=== PATIENT | female | born 1980 | race African-American/Black ===

== ENCOUNTER 2017-03-09 17:55 | Emergency (ER) | payer MEDICAID ==
--- NOTE | 2017-03-09 18:31 | EDM.PDOC ---
ED HPI GENERAL MEDICAL PROBLEM - General Chief Complaint: General Stated Complaint: TOOTHACHE Time Seen by Provider: 03/09/17 18:20 Source of Information: Reports: Patient History Limitations: Reports: No Limitations - History of Present Illness INITIAL COMMENTS - FREE TEXT/NARRATIVE: History of present illness: [36-year-old female presenting with complaints of dental pain. Patient indicates was the pain is in her right upper jaw.] Review of systems: As per history of present illness and below otherwise all systems reviewed and negative. Past medical history: As per history of present illness and as reviewed below otherwise noncontributory. Surgical history: As per history of present illness and as reviewed below otherwise noncontributory. Social history: No reported history of drug or alcohol abuse. Family history: As per history of present illness and as reviewed below otherwise noncontributory. Physical exam: HEENT: Atraumatic, normocephalic, pupils reactive, negative for conjunctival pallor or scleral icterus, mucous membranes moist, throat clear, neck supple, nontender, trachea midline. Lungs: Clear to auscultation, breath sounds equal bilaterally, chest nontender. Heart: S1S2, regular, negative for clicks, rubs, or JVD. Abdomen: Soft, nondistended, nontender. Negative for masses or hepatosplenomegaly. Negative for costovertebral tenderness. Pelvis: Stable nontender. Genitourinary: Deferred. Rectal: Deferred. Extremities: Atraumatic, negative for cords or calf pain. Neurovascular unremarkable. Neuro: Awake, alert, oriented. Cranial nerves II through XII unremarkable. Cerebellum unremarkable. Motor and sensory unremarkable throughout. Exam nonfocal. Patient's global assessment is benign save that of the subjective complaint area visualized the inside patients mouth without any significant edema or swelling noted but noted numerous fillings in the 1 through 4 region. Tooth #1 appeared to be fractured immediately proximal to the silver amalgam material. Patient is new to the area and doesn't have the dentist as such we will add increased risk for an abscess while trying to get into see dentist Diagnostics: [] Therapeutics: [] Impression: [Dental caries, dental abscess] Plan: [Antibiotics brief run of pain medicine dental referral] Definitive disposition and diagnosis as appropriate pending reevaluation and review of above. Right Upper Dental Pain Pain Score (Numeric/FACES): 10 - Related Data Allergies Allergy/AdvReac Type Severity Reaction Status Date / Time No Known Allergies Allergy Verified 03/09/17 18:05 Home Meds: Home Meds . [No Known Home Meds] 03/09/17 [History] Past Medical History - Past Health History Medical/Surgical History: Denies Medical/Surgical History Social & Family History - Family History Family Medical History: Noncontributory - Tobacco Use Smoking Status *Q: Never Smoker Second Hand Smoke Exposure: No - Caffeine Use Caffeine Use: Reports: Coffee, Energy Drinks, Soda, Tea Caffeine Use Comment: 1 drink/day - Recreational Drug Use Recreational Drug Use: No ED ROS GENERAL - Review of Systems Review Of Systems: See Below (See history of present illness) ED EXAM, GENERAL - Physical Exam Exam: See Below (See history of present illness) Course - Vital Signs Last Recorded V/S: Last Vital Signs Temp 36.1 C 03/09/17 18:06 Pulse 74 03/09/17 18:06 Resp 16 03/09/17 18:06 BP 130/74 03/09/17 18:06 Pulse Ox 99 03/09/17 18:06 Departure - Departure Time of Disposition: 18:32 Disposition: Home, Self-Care 01 Condition: good Clinical Impression: Dental abscess, Fracture of tooth - Discharge Information Forms: ED Department Discharge Additional Instructions: The following information is given to patients seen in the emergency department who are being discharged to home. This information is to outline your options for follow-up care. We provide all patients seen in our emergency department with a follow-up referral. The need for follow-up, as well as the timing and circumstances, are variable depending upon the specifics of your emergency department visit. If you don't have a primary care physician on staff, we will provide you with a referral. We always advise you to contact your personal physician following an emergency department visit to inform them of the circumstance of the visit and for follow-up with them and/or the need for any referrals to a consulting specialist. The emergency department will also refer you to a specialist when appropriate. This referral assures that you have the opportunity for follow-up care with a specialist. All of these measure are taken in an effort to provide you with optimal care, which includes your follow-up. Under all circumstances we always encourage you to contact your private physician who remains a resource for coordinating your care. When calling for follow-up care, please make the office aware that this follow-up is from your recent emergency room visit. If for any reason you are refused follow-up, please contact the [facility] Emergency Department at and asked to speak to the emergency department charge nurse. take Medication as directed Followup with dentist DARCIE Return to ER as needed as discussed
[2017-03-09 19:35] VITALS: BP 121/79
== END 2017-03-09 19:20 | disposition home or self-care (01) ==
LOC: MW.ED 17:55
DX: S02.5XXA Fracture of tooth (traumatic), initial encounter for closed fracture (principal); K04.7 Periapical abscess without sinus; K02.9 Dental caries, unspecified
CPT/HCPCS: 99282; 99283

== ENCOUNTER 2018-03-25 09:37 | Emergency (ER) | payer SELFPAY ==
[2018-03-25] MEDS ORDERED: Ketorolac 30 MG/ML SDV IVPUSH ONE (09:55)
[2018-03-25] MEDS ORDERED: Ondansetron 4 MG/2 ML SDV IVPUSH ONE (09:55)
[2018-03-25] MEDS ORDERED: Sodium Chloride 0.9% 1,000 ML IV ONE (09:55)
--- NOTE | 2018-03-25 09:57 | EDM.PDOC ---
ED HPI GENERAL MEDICAL PROBLEM - General Chief Complaint: Neuro Symptoms/Deficits Stated Complaint: HEADACHE AND DIZZINESS Time Seen by Provider: 03/25/18 09:57 Source of Information: Reports: Patient - History of Present Illness INITIAL COMMENTS - FREE TEXT/NARRATIVE: HISTORY AND PHYSICAL: History of present illness: Patient presents with 5 out of 10 unilateral headache with dizziness and mild nausea She denies head injury or trauma no fever vomiting chills sweats no chest pain shortness breath or palpitation no bowel or urine symptoms ] Review of systems: As per history of present illness and below otherwise all systems reviewed and negative. Past medical history: As per history of present illness and as reviewed below otherwise noncontributory. Surgical history: As per history of present illness and as reviewed below otherwise noncontributory. Social history: No reported history of drug or alcohol abuse. Family history: As per history of present illness and as reviewed below otherwise noncontributory. Physical exam: HEENT: Atraumatic, normocephalic, pupils reactive, negative for conjunctival pallor or scleral icterus, mucous membranes moist, throat clear, neck supple, nontender, trachea midline. Tympanic membrane on the right red landmarks obscured slight bulge left is dull and ejected with Vijaya fluid no mastoid tenderness no pain with movement of the auricle mild sinus tenderness right greater than left Lungs: Clear to auscultation, breath sounds equal bilaterally, chest nontender. Heart: S1S2, regular, negative for clicks, rubs, or JVD. Abdomen: Soft, nondistended, nontender. Negative for masses or hepatosplenomegaly. Negative for costovertebral tenderness. Pelvis: Stable nontender. Genitourinary: Deferred. Rectal: Deferred. Extremities: Atraumatic, negative for cords or calf pain. Neurovascular unremarkable. Neuro: Awake, alert, oriented. Cranial nerves II through XII unremarkable. Cerebellum unremarkable. Motor and sensory unremarkable throughout. Exam nonfocal. Diagnostics: [CBC CMP UA EKG chest [address] ] Therapeutics: [1 L bolus Toradol 30 mg IV Zofran 8 mg IV ] Impression: [ sinusitis Otitis media ] Headache improved DizzinessSecondary to above Definitive disposition and diagnosis as appropriate pending reevaluation and review of above. Headache Pain Score (Numeric/FACES): 6 - Related Data Allergies Allergy/AdvReac Type Severity Reaction Status Date / Time No Known Allergies Allergy Verified 03/25/18 09:47 Home Meds: Home Meds . 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 Surgical History: Reports: Section Social & Family History - Family History Family Medical History: Noncontributory - Tobacco Use Smoking Status *Q: Never Smoker - Caffeine Use Caffeine Use: Reports: None Caffeine Use Comment: 1 drink/day - Recreational Drug Use Recreational Drug Use: No ED ROS GENERAL - Review of Systems Review Of Systems: See Below ED EXAM, GENERAL - Physical Exam Exam: See Below Course - Vital Signs Last Recorded V/S: Last Vital Signs Temp 96.8 F 03/25/18 09:45 Pulse 63 03/25/18 10:55 Resp 20 03/25/18 10:55 BP 125/52 L 03/25/18 10:55 Pulse Ox 98 03/25/18 10:55 - Orders/Labs/Meds Orders: Active Orders 24 hr Category Date Time Status EKG Documentation Completion [RC] STAT Care 03/25/18 09:55 Active Chest 1V Frontal [CR] Stat Exams 03/25/18 09:57 Taken Head wo Cont [CT] Stat Exams 03/25/18 09:55 Taken HCG QUALITATIVE,URINE [URCHEM] Stat Lab 03/25/18 10:45 Ordered UA W/MICROSCOPIC [URIN] Stat Lab 03/25/18 10:45 Ordered Labs: Laboratory Tests 03/25/18 03/25/18 03/25/18 Range/Units 10:11 10:11 10:45 WBC 6.66 (4.0-11.0) K/uL RBC 4.70 (4.30-5.90) M/uL Hgb 12.8 (12.0-16.0) g/dL Hct 38.8 (36.0-46.0) % MCV 82.6 (80.0-98.0) fL MCH 27.2 (27.0-32.0) pg MCHC 33.0 (31.0-37.0) g/dL RDW Std Deviation 46.0 (28.0-62.0) fl RDW Coeff of John 15 (11.0-15.0) % Plt Count 285 (150-400) K/uL MPV 9.50 (7.40-12.00) fL Neut % (Auto) 63.2 (48.0-80.0) % Lymph % (Auto) 26.9 (16.0-40.0) % [place] % (Auto) 7.7 (0.0-15.0) % Eos % (Auto) 2.0 (0.0-7.0) % Baso % (Auto) 0.2 (0.0-1.5) % Neut # (Auto) 4.2 (1.4-5.7) K/uL Lymph # (Auto) 1.8 (0.6-2.4) K/uL [place] # (Auto) 0.5 (0.0-0.8) K/uL Eos # (Auto) 0.1 (0.0-0.7) K/uL Baso # (Auto) 0.0 (0.0-0.1) K/uL Nucleated RBC % 0.0 /100WBC Nucleated RBCs # 0 K/uL Sodium 139 (136-145) mmol/L Potassium 3.7 (3.5-5.1) mmol/L Chloride 104 (98-107) mmol/L Carbon Dioxide 26.7 (21.0-32.0) mmol/L BUN 9 (7.0-18.0) mg/dL Creatinine 1.0 (0.6-1.0) mg/dL Est Cr Clr Drug Dosing 58.69 mL/min Estimated GFR (MDRD) > 60.0 ml/min Glucose 103 (74-106) mg/dL Calcium 8.4 L (8.5-10.1) mg/dL Total Bilirubin 0.3 (0.2-1.0) mg/dL AST 19 (15-37) IU/L ALT 18 (14-63) IU/L Alkaline Phosphatase 72 (46-116) U/L Total Protein 7.5 (6.4-8.2) g/dL Albumin 3.8 (3.4-5.0) g/dL Globulin 3.7 H (2.0-3.5) g/dL Albumin/Globulin Ratio 1.0 L (1.3-2.8) Urine Color YELLOW Urine Appearance SLT CLOUDY Urine pH 5.5 (5.0-8.0) Ur Specific [place] 1.025 (1.001-1.035) Urine Protein NEGATIVE (NEGATIVE) mg/dL Urine Glucose (UA) NEGATIVE (NEGATIVE) mg/dL Urine Ketones NEGATIVE (NEGATIVE) mg/dL Urine Occult Blood TRACE-INTACT (NEGATIVE) Urine Nitrite NEGATIVE (NEGATIVE) Urine Bilirubin NEGATIVE (NEGATIVE) Urine Urobilinogen 0.2 (<2.0) EU/dL Ur Leukocyte Esterase NEGATIVE (NEGATIVE) Urine RBC 0-2 (0-2/HPF) Urine WBC 0-2 (0-5/HPF) Ur Epithelial Cells MODERATE (NONE-FEW) Urine Bacteria FEW (NEGATIVE) Urine Mucus LIGHT (NONE-MOD) Urine HCG, Qual (NEGATIVE) 03/25/18 Range/Units 10:45 WBC (4.0-11.0) K/uL RBC (4.30-5.90) M/uL Hgb (12.0-16.0) g/dL Hct (36.0-46.0) % MCV (80.0-98.0) fL MCH (27.0-32.0) pg MCHC (31.0-37.0) g/dL RDW Std Deviation (28.0-62.0) fl RDW Coeff of John (11.0-15.0) % Plt Count (150-400) K/uL MPV (7.40-12.00) fL Neut % (Auto) (48.0-80.0) % Lymph % (Auto) (16.0-40.0) % [place] % (Auto) (0.0-15.0) % Eos % (Auto) (0.0-7.0) % Baso % (Auto) (0.0-1.5) % Neut # (Auto) (1.4-5.7) K/uL Lymph # (Auto) (0.6-2.4) K/uL [place] # (Auto) (0.0-0.8) K/uL Eos # (Auto) (0.0-0.7) K/uL Baso # (Auto) (0.0-0.1) K/uL Nucleated RBC % /100WBC Nucleated RBCs # K/uL Sodium (136-145) mmol/L Potassium (3.5-5.1) mmol/L Chloride (98-107) mmol/L Carbon Dioxide (21.0-32.0) mmol/L BUN (7.0-18.0) mg/dL Creatinine (0.6-1.0) mg/dL Est Cr Clr Drug Dosing mL/min Estimated GFR (MDRD) ml/min Glucose (74-106) mg/dL Calcium (8.5-10.1) mg/dL Total Bilirubin (0.2-1.0) mg/dL AST (15-37) IU/L ALT (14-63) IU/L Alkaline Phosphatase (46-116) U/L Total Protein (6.4-8.2) g/dL Albumin (3.4-5.0) g/dL Globulin (2.0-3.5) g/dL Albumin/Globulin Ratio (1.3-2.8) Urine Color Urine Appearance Urine pH (5.0-8.0) Ur Specific [place] (1.001-1.035) Urine Protein (NEGATIVE) mg/dL Urine Glucose (UA) (NEGATIVE) mg/dL Urine Ketones (NEGATIVE) mg/dL Urine Occult Blood (NEGATIVE) Urine Nitrite (NEGATIVE) Urine Bilirubin (NEGATIVE) Urine Urobilinogen (<2.0) EU/dL Ur Leukocyte Esterase (NEGATIVE) Urine RBC (0-2/HPF) Urine WBC (0-5/HPF) Ur Epithelial Cells (NONE-FEW) Urine Bacteria (NEGATIVE) Urine Mucus (NONE-MOD) Urine HCG, Qual NEGATIVE (NEGATIVE) Meds: Medications Discontinued Medications Generic Name Dose Route Start Last Admin Trade Name Freq PRN Reason Stop Dose Admin Sodium Chloride 1,000 mls @ 999 mls/hr 03/25/18 09:55 03/25/18 10:24 Normal Saline IV 03/25/18 10:55 999 mls/hr STAT ONE Administration Ketorolac Tromethamine 30 mg 03/25/18 09:55 03/25/18 10:25 Toradol IVPUSH 03/25/18 09:56 30 mg ONETIME ONE Administration Ondansetron HCl 8 mg 03/25/18 09:55 03/25/18 10:25 Zofran IVPUSH 03/25/18 09:56 8 mg ONETIME ONE Administration Departure - Departure Time of Disposition: 11:49 Disposition: Home, Self-Care 01 Condition: Good Clinical Impression: Otitis media - Discharge Information Referrals: PCP,None [Primary Care Provider] - Forms: ED Department Discharge Additional Instructions: The following information is given to patients seen in the emergency department who are being discharged to home. This information is to outline your options for follow-up care. We provide all patients seen in our emergency department with a follow-up referral. The need for follow-up, as well as the timing and circumstances, are variable depending upon the specifics of your emergency department visit. If you don't have a primary care physician on staff, we will provide you with a referral. We always advise you to contact your personal physician following an emergency department visit to inform them of the circumstance of the visit and for follow-up with them and/or the need for any referrals to a consulting specialist. The emergency department will also refer you to a specialist when appropriate. This referral assures that you have the opportunity for follow-up care with a specialist. All of these measure are taken in an effort to provide you with optimal care, which includes your follow-up. Under all circumstances we always encourage you to contact your private physician who remains a resource for coordinating your care. When calling for follow-up care, please make the office aware that this follow-up is from your recent emergency room visit. If for any reason you are refused follow-up, please contact the [facility] emergency department at and asked to speak to the emergency department charge nurse. - My Orders Last 24 Hours: My Active Orders 03/25/18 09:55 EKG Documentation Completion [RC] STAT Head wo Cont [CT] Stat 03/25/18 09:57 Chest 1V Frontal [CR] Stat 03/25/18 10:45 HCG QUALITATIVE,URINE [URCHEM] Stat UA W/MICROSCOPIC [URIN] Stat - Assessment/Plan Last 24 Hours: My Active Orders 03/25/18 09:55 EKG Documentation Completion [RC] STAT Head wo Cont [CT] Stat 03/25/18 09:57 Chest 1V Frontal [CR] Stat 03/25/18 10:45 HCG QUALITATIVE,URINE [URCHEM] Stat UA W/MICROSCOPIC [URIN] Stat
[2018-03-25 10:48] LABS: CHLORIDE,CL 104 mmol/L (98-107); SODIUM,NA 139 mmol/L (136-145)
[2018-03-25 10:55] VITALS: BP 125/52
--- NOTE | 2018-03-26 15:27 | CT ---
EXAM DATE: 03/25/18 PATIENT'S AGE: 37 Patient: KATIE SIMONS Facility: [place], [place] Site . Site : 1980 Study: CT Head [id number]/10/2018 11:17:47 AM Ordering Physician: Avni Villatoro Final Report: INDICATION: Headache, nausea and dizziness. COMPARISON: none TECHNIQUE: A CT volumetric acquisition was performed of the brain without IV contrast. FINDINGS: There is no evidence of a subdural or epidural hematoma. There is no evidence of subarachnoid hemorrhage or intraparenchymal bleeding. The CT images reveal a normal appearance of the cerebral ventricles and basal cisterns. There is no evidence of localized tissue infarction or mass effect. There is normal kaplan white matter differentiation. The mastoid air cells and middle ear cavities are clear. The calvarium appears intact. There is normal aeration of the visualized paranasal sinuses. IMPRESSION: Negative head CT. Please note that all CT scans at this facility use dose modulation, iterative reconstruction, and/or weight-based dosing when appropriate to reduce radiation dose to as low as reasonably achievable. Dictated by Angelo Louise MD @ Mar 25 2018 11:21AM (Electronic Signature) Report Signed by Proxy. ALINA
--- NOTE | 2018-03-26 15:28 | CR ---
EXAM DATE: 03/25/18 PATIENT'S AGE: 37 Patient: KATIE SIMONS Facility: [place], [place] Site . Site : 1980 Study: XRay Chest [id number]/10/2018 11:24:01 AM Ordering Physician: Avni Villatoro Final Report: INDICATION: Chest pain. Shortness of breath. COMPARISON: none TECHNIQUE: PA chest performed at 11:14 a.m. FINDINGS: The lungs are clear. There is no evidence a pneumothorax. The heart, mediastinum and pulmonary vessels are of normal size. There is no evidence of pleural fluid. IMPRESSION: Negative chest. Dictated by Angelo Louise MD @ Mar 25 2018 11:24AM (Electronic Signature) Report Signed by Proxy. ALINA
== END 2018-03-25 12:14 | disposition home or self-care (01) ==
LOC: MW.ED 09:37
DX: H66.93 Otitis media, unspecified, bilateral (principal); J32.9 Chronic sinusitis, unspecified
CPT/HCPCS: 36415; 70450; 71045; 80053; 81001; 81025; 85025; 93005; 96361; 96374; 96375; 99285; J1885; J2405; J7040; 99283

== ENCOUNTER 2018-04-10 07:08 | Emergency (ER) | payer SELFPAY ==
--- NOTE | 2018-04-10 07:24 | EDM.PDOC ---
ED HPI GENERAL MEDICAL PROBLEM - General Chief Complaint: Upper Extremity Injury/Pain Stated Complaint: LEFT HAND PAIN Time Seen by Provider: 04/10/18 07:15 Source of Information: Reports: Patient History Limitations: Reports: No Limitations - History of Present Illness INITIAL COMMENTS - FREE TEXT/NARRATIVE: History of present illness: []Patient jammed her left ring finger while playing baseball last night. She took ibuprofen but is still complaining of pain. She is requesting a day of work Review of systems: As per history of present illness and below otherwise all systems reviewed and negative. Past medical history: As per history of present illness and as reviewed below otherwise noncontributory. Surgical history: As per history of present illness and as reviewed below otherwise noncontributory. Social history: No reported history of drug or alcohol abuse. Family history: As per history of present illness and as reviewed below otherwise noncontributory. Physical exam: General: Well developed, well nourished in NAD HEENT: Atraumatic, normocephalic, pupils reactive, negative for conjunctival pallor or scleral icterus, mucous membranes moist, throat clear, neck supple, nontender, trachea midline. Lungs: Clear to auscultation, breath sounds equal bilaterally, chest nontender. Heart: S1S2, regular, negative for clicks, rubs, or JVD. Abdomen: Soft, nondistended, nontender. Negative for masses or hepatosplenomegaly. Negative for costovertebral tenderness. Pelvis: Stable nontender. Genitourinary: Deferred. Rectal: Deferred. Extremities: Atraumatic, no swelling or deformity noted distal capillary refill intact negative for cords or calf pain. Neurovascular unremarkable. Neuro: Awake, alert, oriented. Cranial nerves II through XII unremarkable. Cerebellum unremarkable. Motor and sensory unremarkable throughout. Exam nonfocal. Diagnostics: X-ray negative for fracture or dislocation Therapeutics: []Patient declined pain meds Impression: []Left ring finger pain Plan: []Splint for comfort follow-up with primary Motrin for pain Definitive disposition and diagnosis as appropriate pending reevaluation and review of above. left 4th digit Pain Score (Numeric/FACES): 8 - Related Data Allergies Allergy/AdvReac Type Severity Reaction Status Date / Time No Known Allergies Allergy Verified 04/10/18 07:19 Home Meds: Home Meds . 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 Surgical History: Reports: Section Social & Family History - Family History Family Medical History: Noncontributory - Caffeine Use Caffeine Use: Reports: None Caffeine Use Comment: 1 drink/day Review of Systems - Review of Systems Review Of Systems: See Below (See history of present illness) ED EXAM, GENERAL - Physical Exam Exam: See Below (See history of present illness) Course - Vital Signs Last Recorded V/S: Last Vital Signs Temp 96.8 F 04/10/18 07:19 Pulse 80 04/10/18 07:19 Resp 18 04/10/18 07:19 BP 138/81 04/10/18 07:19 Pulse Ox 98 04/10/18 07:19 - Orders/Labs/Meds Orders: Active Orders 24 hr Category Date Time Status Fingers Fourth Digit Lt F3 [CR] Stat Exams 04/10/18 07:22 Taken Departure - Departure Time of Disposition: 08:21 Disposition: Home, Self-Care 01 Condition: Good Clinical Impression: Strain of left ring finger - Discharge Information Referrals: PCP,None [Primary Care Provider] - Forms: ED Department Discharge Additional Instructions: The following information is given to patients seen in the emergency department who are being discharged to home. This information is to outline your options for follow-up care. We provide all patients seen in our emergency department with a follow-up referral. The need for follow-up, as well as the timing and circumstances, are variable depending upon the specifics of your emergency department visit. If you don't have a primary care physician on staff, we will provide you with a referral. We always advise you to contact your personal physician following an emergency department visit to inform them of the circumstance of the visit and for follow-up with them and/or the need for any referrals to a consulting specialist. The emergency department will also refer you to a specialist when appropriate. This referral assures that you have the opportunity for follow-up care with a specialist. All of these measure are taken in an effort to provide you with optimal care, which includes your follow-up. Under all circumstances we always encourage you to contact your private physician who remains a resource for coordinating your care. When calling for follow-up care, please make the office aware that this follow-up is from your recent emergency room visit. If for any reason you are refused follow-up, please contact the [facility] Emergency Department at and asked to speak to the emergency department charge nurse. [facility] [address] [place] [id number] - My Orders Last 24 Hours: My Active Orders 04/10/18 07:22 Fingers Fourth Digit Lt F3 [CR] Stat - Assessment/Plan Last 24 Hours: My Active Orders 04/10/18 07:22 Fingers Fourth Digit Lt F3 [CR] Stat
[2018-04-10 08:40] VITALS: BP 113/77
--- NOTE | 2018-04-10 11:32 | CR ---
EXAM DATE: 04/10/18 PATIENT'S AGE: 37 Patient: KATIE SIMONS Facility: [place], [place] Site . Site : 1980 Study: XRay Extremity Left Finger [id number]/26/2018 7:41:17 AM Ordering Physician: Jonatan Serna Final Report: INDICATION: Pain and swelling over the 4th PIP joint. Injured finger playing volleyball. TECHNIQUE: Three-view left 4th finger. FINDINGS: The bones are anatomically aligned. There is no evidence of a fracture radiopaque foreign body. There is mild soft tissue swelling about the proximal phalanx. IMPRESSION: Soft tissue injury. No fracture identified. Dictated by Angelo Louise MD @ Apr 10 2018 8:06AM (Electronic Signature) Report Signed by Proxy. ALINA
== END 2018-04-10 08:39 | disposition home or self-care (01) ==
LOC: MW.ED 07:08
DX: S67.195A Crushing injury of left ring finger, initial encounter (principal); W23.0XXA Caught, crushed, jammed, or pinched between moving objects, initial encounter; Y93.64 Activity, baseball
CPT/HCPCS: 73140-26-F3; 73140-F3; 99283

== ENCOUNTER 2019-04-16 20:00 | Emergency (ER) | payer OTHER ==
[2019-04-16] MEDS ORDERED: Ketorolac 60 MG/2 ML SDV IM ONE (21:05)
--- NOTE | 2019-04-16 21:16 | EDM.PDOC ---
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 She was placing some cookie dough in the freezer when the chacon slipped, she attempted to save it and twisted and bent over at the same time, stretching her back. Denies radiation to leg or foot but does complain of radiation to the buttocks. No loss of bowel or bladder function and no saddle anesthesia. Since that time she has complained of pain. Lower Back Pain Score (Numeric/FACES): 10 - Related Data Allergies Allergy/AdvReac Type Severity Reaction Status Date / Time No Known Allergies Allergy Verified 04/16/19 20:32 Home Meds: Home Meds Cyclobenzaprine [Flexeril] 1 tab PO TID PRN #20 tab 04/16/19 [Rx] Diclofenac Sodium [Voltaren] 75 mg PO BIDMEALS PRN #20 tab.ec 04/16/19 [Rx] Past Medical History - Past Health History Medical/Surgical History: Denies Medical/Surgical History HEENT History: Reports: None Cardiovascular History: Reports: None Respiratory History: Reports: None Gastrointestinal History: Reports: None Genitourinary History: Reports: None TUBE HEATER History: Reports: Musculoskeletal History: Reports: None Neurological History: Reports: None Psychiatric History: Reports: None Endocrine/Metabolic History: Reports: None Hematologic History: Reports: None Immunologic History: Reports: None Oncologic (Cancer) History: Reports: None Dermatologic History: Reports: None - Infectious Disease History Infectious Disease History: Reports: Chicken Pox - Past Surgical History Head Surgeries/Procedures: Reports: None HEENT Surgical History: Reports: None Cardiovascular Surgical History: Reports: None Respiratory Surgical History: Reports: None GI Surgical History: Reports: None Female Surgical History: Reports: Section Other Female Surgeries/Procedures: x3 Endocrine Surgical History: Reports: None Neurological Surgical History: Reports: None Musculoskeletal Surgical History: Reports: None Oncologic Surgical History: Reports: None Dermatological Surgical History: Reports: None Social & Family History - Family History Family Medical History: Noncontributory - Tobacco Use Smoking Status *Q: Never Smoker Second Hand Smoke Exposure: No - Caffeine Use Caffeine Use: Reports: Coffee Caffeine Use Comment: 1 drink/day - Recreational Drug Use Recreational Drug Use: No ED ROS GENERAL - Review of Systems Review Of Systems: ROS reveals no pertinent complaints other than HPI. : Reports: No Symptoms, Other (No loss of bowel or bladder function) Neurological: Reports: Other (No saddle anesthesia) ED EXAM,LOWER BACK PAIN/INJURY - Physical Exam Exam: See Below Exam Limited By: No Limitations General Appearance: Alert, No Apparent Distress Ears: Normal External Exam Nose: Normal Inspection Throat/Mouth: Normal Inspection Head: Atraumatic Neck: Normal Inspection Respiratory/Chest: No Respiratory Distress, Lungs Clear, Normal Breath Sounds Cardiovascular: Normal Peripheral Pulses, Regular Rate, Rhythm, No Murmur Back Exam: Normal Inspection, Other (Right SI joint tenderness). No: Paraspinal Tenderness, Vertebral Tenderness Neurological: Alert, Normal Mood/Affect DTR - Lower Extremities: 2+: Knee (R), Knee (L) Psychiatric: Normal Affect, Normal Mood Skin Exam: Warm, Dry, Intact, Normal Color, No Rash Lymphatic: No Adenopathy Course - Vital Signs Last Recorded V/S: Last Vital Signs Temp 36.1 C 04/16/19 20:32 Pulse 71 04/16/19 20:32 Resp 16 04/16/19 20:32 BP 128/59 L 04/16/19 20:32 Pulse Ox 97 04/16/19 20:32 - Orders/Labs/Meds Meds: Medications Discontinued Medications Generic Name Dose Route Start Last Admin Trade Name Freq PRN Reason Stop Dose Admin Ketorolac Tromethamine 60 mg 04/16/19 21:05 Toradol IM 04/16/19 21:06 ONETIME ONE Orphenadrine Citrate 60 mg 04/16/19 21:07 Norflex IM 04/16/19 21:08 Q12H ONE Departure - Departure Time of Disposition: 21:13 Disposition: Home, Self-Care 01 Condition: Good Clinical Impression: Low back strain Qualifiers: Encounter type: initial encounter Qualified Code(s): S39.012A - Strain of muscle, fascia and tendon of lower back, initial encounter - Discharge Information *PRESCRIPTION DRUG MONITORING PROGRAM REVIEWED*: Not Applicable *COPY OF PRESCRIPTION DRUG MONITORING REPORT IN PATIENT [place]: Not Applicable Prescriptions: Cyclobenzaprine [Flexeril] 1 tab PO TID PRN #20 tab PRN Reason: Muscle Spasm Diclofenac Sodium [Voltaren] 75 mg PO BIDMEALS PRN #20 tab.ec PRN Reason: Pain Referrals: PCP,None [Primary Care Provider] - [facility] [Outside] [facility] [Outside] Additional Instructions: 1. Muscle relaxant every 8 hours as needed. No driving or operating machinery 2. Diclofenac every 12 hours for pain 3. Warm or cold packs 20 minutes every 3-4 hours whichever feels best 4. Follow-up with primary provider
[2019-04-16 21:46] VITALS: BP 116/78
== END 2019-04-16 21:42 | disposition home or self-care (01) ==
LOC: MW.ED 20:00
DX: S39.012A Strain of muscle, fascia and tendon of lower back, initial encounter (principal); X50.1XXA Overexertion from prolonged static or awkward postures, initial encounter; Y99.0 Civilian activity done for income or pay
CPT/HCPCS: 96372; 99283; J1885; J2360